=== PATIENT | male | born 1960 | race Caucasian/White ===

== ENCOUNTER → 2017-06-22 | Outpatient (CLI) | payer OTHER ==
[2017-06-22] MEDS: IOHEXOL 300 MG/ML 100ML VIAL. IV ×2 (13:45→14:53)
== END | disposition home or self-care (01) ==
LOC: CT 13:29
DX: M97.8XXA Periprosthetic fracture around other internal prosthetic joint, initial encounter (principal); D16.22 Benign neoplasm of long bones of left lower limb; D16.21 Benign neoplasm of long bones of right lower limb; I74.5 Embolism and thrombosis of iliac artery; N40.0 Benign prostatic hyperplasia without lower urinary tract symptoms
CPT/HCPCS: 75635; Q9967

== ENCOUNTER → 2018-04-19 | Outpatient (CLI) | payer OTHER ==
[2018-03-06 11:00] VITALS: BP 126/77
[~2018-04-19] MED LIST: ALLO100T PO; APIX5TAB PO; ARIP10TA9 IM; ARIP10TA9 PO; ATOR40TA59 PO; BUDE10.2 IH; DILTIAZEM HCL PO; FAMO20TA5 PO; GEMF600T8 PO; HALO10TA PO; HALO5TAB PO; LISI-334 PO; LISI1TAB5 PO; METO50TA6 PO; PRED-220 PO; REGADENOSON 0.4 MG/5 ML DISP.SYRIN. IV ONE; VARE1TAB21 PO
--- NOTE | 2018-04-19 13:47 | RAD ---
MR#: [id number] Date of Study: 04/19/2018 Ordering Physician: GIOVANNI JEFFERSON Referring Physician: MAU [facility] Tech: RT Fannie Isabel) (N) APPROVED REPORT Test Type: Pharmacological Stress Nurse/Tech: Jag Lala Test Indications: Paroxysmal atrial flutter Cardiac History: HTN, Smoker, CVA Medications: See EMR Medical History: See EMR Resting ECG: SR Resting Heart Rate: 91 bpm Resting Blood Pressure: 125/89mmHg Pretest Chest Pain: No chest pain Nurse/Tech Notes Lungs diminished throughout, heart tones regular. Consent: The procedure was explained to the patient in lay terms. Informed consent was witnessed. Joey eout was entered into [employer]. History and Stress Test performed by RT Fannie Curtis) (N) Pharm. Details Pharmacologic stress testing was performed using 0.4mg per 5ml of regadenoson given intravenously ove r 7-10 seconds. Stress Symptoms No chest pain or symptoms. POST EXERCISE Reason for Termination: Infusion complete Max HR: 103 bpm Max Blood Pressure: 135/71mmHg Chest Pain: No. Arrhythmia: No. ST Change: No. INTERPRETATION Stress EKG Conclusion: Baseline EKG showed sinus rhythm. No ischemic changes at peak stress. No arr hythmias. Rest: Stress: Viability: Radiopharm.Tc99m [id number] Sestamibi Dose9.3mCi 32mCi Duration 15min. 15min. Img Date 04/19/2018 04/19/2018 Inj-Img [id number]. 60min. Rest Admin Site:IV - Right AntecubitalAdministrator:RT Kirsten (Mio)(N) Stress Admin Site: IV - Right AntecubitalAdministrator: RT Fannie Curtis)(N) STRESS DATA End Diast. Vol.62.0mlLVEDV index BSA30.0ml End Syst. Vol.20.0mlLVESV index BSA10.0ml Myocardial Mass98.0gEject. Csyahhge30.0% Stress Scores Regional WT1.00Summed WT14.00 Regional WM1.00Summed WM2.00 Study quality was good. Left Ventricular size was Normal at Rest and Stress. Lung uptake was . Left Ventricular ejection fraction is 68%. The rest and stress images show normal perfusion, normal contraction and thickening. LV Perf. Quant 17 Seg. SSS0.00 17 Seg. SRS0.00 17 Seg. SDS0.00 Stress Defect Extent (% LAD)0.00Rest Defect Extent (% LAD)0.00Rev. Defect Extent (% LAD)0.00 Stress Defect Extent (% LCX) 0.00Rest Defect Extent (% LCX)2.50Rev. Defect Extent (% LCX)0.00 Stress Defect Extent (% RCA)0.00Rest Defect Extent (% RCA)0.00Rev. Defect Extent (% RCA)0.00 Stress Defect Extent (% FRANCESCA)0.00Rest Defect Extent (% FRANCESCA)0.90Rev. Defect Extent (% FRANCESCA)0.00 Conclusion 1. Regadenoson cardioisotope stress test did not show any evidence of ischemia or infarct. 2. Normal left ventricular systolic function with ejection fraction calculated at 68%. 3. Low risk for cardiac events. Signed by : Giovanni Jefferson, Electronically Approved : 04/19/2018 13:47:05
== END | disposition home or self-care (01) ==
LOC: NM 10:40
PROVIDERS: ATTEND Internal Medicine Cardiovascular Disease
DX: I48.0 Paroxysmal atrial fibrillation (principal); I10 Essential (primary) hypertension; Z87.891 Personal history of nicotine dependence; Z86.73 Personal history of transient ischemic attack (TIA), and cerebral infarction without residual deficits
CPT/HCPCS: 78452; 93017; 96374; J2785

== ENCOUNTER 2018-04-27 09:06 | Inpatient (IN) | payer OTHER ==
[2018-04-27] VITALS (13 sets, daily range): BP systolic 128–164; BP diastolic 77–103
[~2018-04-27] VITALS: Ht 170.2 cm; Wt 100.9 kg
[~2018-04-27 09:06] MED LIST changes: -ARIP10TA9 IM; -HALO10TA PO; -REGADENOSON 0.4 MG/5 ML DISP.SYRIN. IV ONE
[2018-04-27] MEDS ORDERED: BACITRACIN 50,000 UNIT in IV NORMAL SALINE 250ML 250 ML IRR ONE (09:30)
[2018-04-27 09:37] LABS: CALCIUM 9.1 mg/dL (8.5-10.1); GFR 76.7; HEMATOCRIT 46.6 % (39.0-53.0); HEMOGLOBIN 15.9 g/dL (13.0-17.5); POTASSIUM 3.7 mmol/L (3.5-5.1); RED BLOOD COUNT 4.93 x10^6/uL (4.30-5.70); RED CELL DISTRIBUTION WIDTH 13.8 % (11.5-14.5); WHITE BLOOD COUNT 7.9 x10^3/uL (4.0-11.0)
[2018-04-27] MEDS ORDERED: LIDOCAINE 2%/EPI 1:100,000 20 ML VIAL. ONE ×2 (09:49)
[2018-04-27] MEDS ORDERED: MIDAZOLAM HCL/PF 2 MG/2 ML VIAL. ONE ×2 (09:51→11:04)
[2018-04-27] MEDS ORDERED: fentaNYL PF VIAL 100 MCG/2 ML VIAL ONE ×2 (09:52→11:05)
[2018-04-27 10:04] LABS: PROTHROMBIN TIME PATIENT 12.2 SEC (11.7-14.0)
--- NOTE | 2018-04-27 10:06 | EKG ---
[facility] [address] [place] [address] Test Date: 2018-04-27 Test Time: 10:00:25 Pat Name: TEN BRYAN Department: Room: Gender: M Software Release Manager: CRUZ : [id number] Requested By: COOPER HENDERSON Order Number: [id number] Reading MD: Cooper Henderson Measurements Intervals [place] Rate: 88 P: -17 AL: 154 QRS: 66 QRSD: 94 T: 54 QT: 370 QTc: 451 Interpretive Statements SINUS RHYTHM INCOMPLETE RIGHT BUNDLE BRANCH BLOCK Electronically Signed On 04-27-2018 10:06:43 CHILD CARE TEACHER by Cooper Henderson
[2018-04-27] MEDS ORDERED: APIX5TAB PO ×2 (10:10→10:13)
[2018-04-27] MEDS ORDERED: HALO10TA PO (10:14)
[2018-04-27] MEDS ORDERED: MIDAZOLAM HCL/PF 2 MG/2 ML VIAL. IV ONE (10:15)
[2018-04-27] MEDS ORDERED: fentaNYL PF VIAL 100 MCG/2 ML VIAL IV ONE (10:15)
[2018-04-27] MEDS ORDERED: LIDOCAINE 2%/EPI 1:100,000 20 ML VIAL. IJ ONE (10:15)
[2018-04-27] MEDS ORDERED: ARIP10TA9 IM (10:19)
[2018-04-27] MEDS ORDERED: ALLO100T PO (10:19)
--- NOTE | 2018-04-27 12:29 | CARD ---
MR#: [id number] Date of Study: 04/27/2018 Ordering Physician: GIOVANNI HENDERSON, Referring Physician: GIOVANNI HENDERSON, Tech: APPROVED REPORT PROCEDURES Successful implantation of Biotronik dual chamber permanent pacemaker Moderate sedation: 50 mins INDICATIONS Sick sinus syndrome, tachycardia-bradycardia syndrome with significant pauses PROCEDURE After explaining the risks, benefits, and alternative options, informed consent was obtained from the patient. The patient was brought to the cardiac catheterization lab and the left chest and shoulder were prepp ed and draped in a sterile manner. 30 mL of 2% lidocaine was infiltrated into the skin and subcutaneous tissues for local anesthesia. An incision was made in the left infraclavicular fossa and using blunt dissection and cautery a pocket was created. Venous access was obtained in the left subclavian vein and 8 and 6 Malay sheaths insert ed. A Biotronik bipolar active fixation right ventricular lead model Solia serial #[id number] was advanced under fluoroscopy guidance and the tip was positioned in the right ventricular apex. Following this, a Biotronik bipolar active fixation right atrial lead model solia serial #[id number] was positioned in the right atrial appendage under fluoroscopy guidance. The leads were secured into place and attached to a Biotronik dual-chamber permanent pacemaker generator model Eluna 8 DR-T ProMRI serial #[id number] . This was placed in the pocket that was subsequently closed in 3 layers. Hemostasis was secured. The right ventricular lead showed a sensing amplitude of 13.5 mV, impedance of 677 ohms and a thresho ld of 0.6 V. The right atrial lead showed a sensing amplitude of 3.5 mV, impedance of 618 ohms and a threshold of 0.9 V. Patient tolerated the procedure well. There were no immediate complications. CONCLUSION Successful implantation of Biotronik dual-chamber permanent pacemaker for tachycardia-bradycardia syn drome. Signed by : Giovanni Henderson, Electronically Approved : 04/27/2018 12:29:05
--- NOTE | 2018-04-27 12:30 | NUR ---
The patient, TEN BRYAN, 58 y/o, M admitted by GIOVANNI JEFFERSON MD, was given written information regarding hospital policies, unit procedures and contact persons. Valuables were checked and noted. Patient arrived to room 201 via bed from PACU at 1230. Pacemaker site on L chest CDI. Patient placed on cardiac monitor technician. VSS. Patient on 2L O2 NC. No complaints of pain. Patient A&OX4. Patient has flat affect. Will continue to monitor.
--- NOTE | 2018-04-27 12:36 | PDOC ---
MODERATE SEDATION ASSESSMENT RISKS/ALTERNATIVES Risks/Alternatives Risks and alternatives of this type of sedation and procedure discussed with: RISK/ALTERNATIVES: Patient H & P ON CHART H & P H & P on chart and reviewed for co-morbid conditions and appropriate labs. H&P ON CHART: Yes STATUS PREG STATUS ASSESSED: N/A MEDS/ALLERGIES REVIEWED Meds/Allergies Reviewed Medications and Allergies including time and route of recently administered narcotics and sedatives. MEDS/ALLERGIES REVIEWED: Yes ASA RATING ASA RATING: III AIRWAY ASSESSMENT Airway Assessment Airway patency, oral function limitations, presence of caps, crowns, dentures, partials, and ability to extend neck assessed. AIRWAY ASSESSMENT: Yes MALLAMPATI SCORE MALLAMPATI SCORE: II PRE-SEDATION ASSESSMENT PRE-SEDATION ASSESSMENT: Yes GIOVANNI JEFFERSON MD Apr 27, 2018 12:36
[2018-04-27] MEDS ORDERED: NO ANTICOAGULANT THERAPY. MC PRN (12:45)
--- NOTE | 2018-04-27 12:56 | NUR ---
Patient arrived from [facility] via [facility] on ventilator. Patient received bilateral chest tubes without any complications. No sedation only local lidocaine. Patient left facility via [facility] stretcher on the ventilator. Vitals stable. Report called to [facility]. Addendum: 04/27/18 at 1258 by ENRIQUE SAM RN Charted on wrong patient.
--- NOTE | 2018-04-27 13:29 | RAD ---
Examination: PORTABLE CHEST 1V History: post pacemaker Comparison/Correlation: 03/03/2018 CT chest without contrast Findings: Portable frontal view chest was obtained. Dual-lead left-sided pacemaker is present. Leads appear to be in place and intact. One of the leads overlies the right ventricle while the other overlies the right atrial appendage. Heart size and pulmonary vasculature are normal. No pneumothorax. Calcified granulomas are present. No infiltrate or significant pleural effusion. Deformity of the proximal left humerus presumably represents sequela of previous trauma. Impression: No active disease. Electronically signed by: Kade Waters MD (04/27/2018 1:26 PM) [id number]
[2018-04-27] MEDS ORDERED: ARIPIPRAZOLE IM SCH (17:00)
[2018-04-27] MEDS ORDERED: VARENICLINE 0.5 MG TABLET. PO PRN (17:15)
[2018-04-27] MEDS ORDERED: ALBUTEROL SULFATE 2.5 MG/3 ML NEBU. NEB SCH (18:00)
[2018-04-27] MEDS ORDERED: MORPHINE SULFATE 2 MG/ML VIAL. IV PRN ×2 (18:30)
[2018-04-27] MEDS: BUDESONIDE 0.5 MG/2 ML NEBU. NEB SCH (19:53)
[2018-04-27] MEDS: ALBUTEROL SULFATE 2.5 MG/3 ML NEBU. NEB SCH (19:53)
[2018-04-27] MEDS: FAMOTIDINE 20 MG TABLET. PO SCH (19:58)
[2018-04-27] MEDS: APIXABAN 5 MG TABLET. PO SCH (19:58)
[2018-04-27] MEDS: ALLOPURINOL 100 MG TABLET. PO SCH (19:58)
[2018-04-27] MEDS ORDERED: BUDESONIDE 0.5 MG/2 ML NEBU. NEB SCH (20:00)
[2018-04-27] MEDS ORDERED: NON FORMULARY ITEM (Budesonide/Formoterol Fumarate (Symbicort 160-4.5 Mcg Inhaler) 2 PUFF) IH SCH (21:00)
[2018-04-27] MEDS ORDERED: ATORVASTATIN CALCIUM 40 MG TABLET. PO SCH (21:00)
[2018-04-28 03:50] VITALS: BP_SYST 117; BP_SYST 183; BP_DIAS 103; BP_DIAS 56
[2018-04-28] MEDS ORDERED: LISINOPRIL 20 MG TABLET PO ONE (04:30)
[2018-04-28 05:35] VITALS: BP 161/87
[2018-04-28] MEDS: BUDESONIDE 0.5 MG/2 ML NEBU. NEB SCH (06:12)
[2018-04-28] MEDS: ALBUTEROL SULFATE 2.5 MG/3 ML NEBU. NEB SCH ×2 (06:12→11:34)
[2018-04-28 07:00] VITALS: BP 159/98
--- NOTE | 2018-04-28 07:51 | RAD ---
Chest, 2 views, 04/28/2018: HISTORY: Post pacemaker insertion Comparison is made to yesterday's study. The left-sided transvenous pacemaker is unchanged in position with 2 leads extending into the right heart. The heart size and pulmonary vascularity are normal. Bilateral nodular chest opacities are unchanged as better demonstrated on the 03/03/2018 CT exam. There are rib lesions contributing to this appearance. Multiple osteochondromas are present. No acute infiltrate is seen. There is no evidence of pneumothorax or pleural fluid. IMPRESSION: No acute cardiopulmonary abnormality is detected. Electronically signed by: Donavan Booker MD (04/28/2018 7:48 AM) [facility]
[2018-04-28] MEDS: ALLOPURINOL 100 MG TABLET. PO SCH (08:52)
[2018-04-28] MEDS: FAMOTIDINE 20 MG TABLET. PO SCH (08:52)
[2018-04-28] MEDS: APIXABAN 5 MG TABLET. PO SCH (08:52)
[2018-04-28] MEDS ORDERED: hydroCHLOROthiazide 12.5 MG CAPSULE PO SCH (09:00)
[2018-04-28] MEDS ORDERED: HYDROcodone/APAP 5/325MG 1 TAB TABLET PO ONE (09:00)
[2018-04-28] MEDS ORDERED: LISINOPRIL 20 MG TABLET PO SCH (09:00)
[2018-04-28] MEDS ORDERED: NON FORMULARY ITEM (Lisinopril/Hydrochlorothiazide (Lisinopril-Hctz 20-12.5 Mg Tab) 1 TAB) PO SCH (09:00)
[2018-04-28 10:36] VITALS: BP 145/92
--- NOTE | 2018-04-28 10:58 | PDOC3 ---
[facility] DATA [facility]MINISTRATOR 04/28/18 1058: Discharge Summary Visit Information Date of Admission: Apr 27, 2018 Date of Discharge: Apr 28, 2018 Admitting Diagnosis: PAFIB, Tachy-Braden syndrome Final Diagnosis PAFIB, Tachy-Braden syndrome, S/P PPM Brief Hospital Course Allergies Allergies Coded Allergies Type Severity Reaction Last Updated Verified No Known Drug Allergies 04/27/17 No Vital Signs Vital Signs Date Time Temp Pulse Resp B/P (MAP) Pulse Ox O2 Delivery O2 Flow Rate FiO2 04/28/18 10:36 97.5 92 18 145/92 (109) 94 Room Air 97.5 04/27/18 12:40 2.0 Lab Results Laboratory Tests Test 04/27/18 09:25 White Blood Count 7.9 x10^3/uL (4.0-11.0) Red Blood Count 4.93 x10^6/uL (4.30-5.70) Hemoglobin 15.9 g/dL (13.0-17.5) Hematocrit 46.6 % (39.0-53.0) Mean Corpuscular Volume 95 fL (79-100) Mean Corpuscular Hemoglobin 32 pg (25-35) Mean Corpuscular Hemoglobin Concent 34 g/dL (31-37) Red Cell Distribution Width 13.8 % (11.5-14.5) Platelet Count 235 x10^3/uL (140-400) Prothrombin Time 12.2 SEC (11.7-14.0) Prothromb Time International Ratio 0.9 (0.8-1.1) Sodium Level 147 mmol/L (136-145) Potassium Level 3.7 mmol/L (3.5-5.1) Chloride Level 103 mmol/L (98-107) Carbon Dioxide Level 33 mmol/L (21-32) Anion Gap 11 (6-14) Blood Urea Nitrogen 21 mg/dL (8-26) Creatinine 1.0 mg/dL (0.7-1.3) Estimated GFR (Cockcroft-Gault) 76.7 Glucose Level 106 mg/dL (70-99) Calcium Level 9.1 mg/dL (8.5-10.1) Brief Hospital Course Mr. Sorensen is a 58 yo male admitted for planned. PPM. Pt is significant for PAFIB and post event monitor noted with significant pauses with related AFIB prompting need for PPM. Successful implantation of Biotronik dual-chamber permanent pacemaker without complications. VSS. overnight no AFIB or RVR episodes and maintaining SR. Repeat interrogation revealed normal function. AOx3 , ambulatory without difficulty. Left chest incision intact with steristrips and well approximated, no redness/swelling with minute serosanguiinous drain. Neurovascular status to LUE intact with sling in place. Home with home med regimen including eliquis for stroke prevention and cardizem. Will note AFIB burden as an outpt and will consider antiarrhythmic therapy. Recent MPI noted normalcy on 04/19/2018. Post PPM instruction provided. smoking cessation encouraged. Discharge Information Condition at Discharge: Stable Follow Up: Weeks (2) Disposition/Orders: D/C to Home Scheduled Allopurinol (Allopurinol) 100 Mg Tablet, 1 TAB PO BID for Gout, #30 Ref 5 ( Reported) Entered as Reported by: ENRIQUE SAM on 04/27/18 1019 Last Taken: Unknown Dose on 04/26/18 Last Action: Continued on 04/27/181700 by RAJ WILKINSON Apixaban (Eliquis) 5 Mg Tablet, 1 TAB PO BID for Afib/Aflutter, (Reported) Entered as Reported by: ENRIQUE SAM on 04/27/18 1013 Last Taken: Unknown Dose on 04/24/18 Last Action: Continued on 04/27/181700 by RAJ WILKINSON Aripiprazole (Abilify) 10 Mg Tablet, 9.75 MG IM UD for Paranoid Schizo, ( Reported) Entered as Reported by: ENRIQUE SAM on 04/27/18 1019 Last Action: Converted on 04/27/181700 by RAJ JAJA Atorvastatin Calcium (Atorvastatin Calcium) 40 Mg Tablet, 40 MG PO QHS for cholesterol for 30 Days, #30 Ref 11 Prescribed by: ASTRID GRANADOS MD on 03/06/18 1244 Last Taken: Unknown Dose on 04/26/18 Last Action: Continued on 04/27/181700 by RAJ WILKINSON Budesonide/Formoterol Fumarate (Symbicort 160-4.5 Mcg Inhaler) 10.2 Gm Hfa.aer.ad, 2 PUFF IH BID for SOA, (Reported) Entered as Reported by: ROSEANNA SMITH on 03/03/18 140 Last Taken: Unknown Dose on 04/26/18 Last Action: Converted on 04/27/181700 by RAJ WILKINSON Famotidine (Famotidine) 20 Mg Tablet, 20 MG PO BID, (Reported) Entered as Reported by: JOHN CROUCH on 04/27/171731 Last Taken: Unknown Dose on 04/26/18 Last Action: Continued on 04/27/181700 by RAJ WILKINSON Lisinopril/Hydrochlorothiazide (Lisinopril-Hctz 20-12.5 Mg Tab) 1 Each Tablet, 1 TAB PO DAILY, #30 Ref 5 (Reported) Entered as Reported by: JOHN CROUCH on 04/27/171731 Last Taken: Unknown Dose on 04/26/18 Last Action: Converted on 04/27/181700 by RAJ WILKINSON [Diltiazem Hcl] 300 MG CAP.ER.24H, 300 MG PO DAILY for heart for 30 Days, #30 Ref 11 Prescribed by: ASTRID GRANADOS MD on 03/06/18 1244 Last Taken: Unknown Dose on 04/26/18 Last Action: Converted on 04/27/181700 by RAJ WILKINSON Scheduled PRN Varenicline Tartrate (Chantix) 1 Mg Tablet, 1 MG PO BID PRN for WITHDRAWAL IRRITABILITY, (Reported) Entered as Reported by: ROSEANNA SMITH on 03/03/18 1403 Last Action: Converted on 04/27/181700 by RAJ WILKINSON Discontinued Medications Haloperidol (Haloperidol) 5 Mg Tablet, 5 MG PO TID for agitation/anxiety, ( Reported) Entered as Reported by: ROSEANNA SMITH on 03/03/18 1406 Last Action: Discontinued on 04/27/18 1014 by ENRIQUE SAM Patient Instructions Patient Instructions Must know & what to expect after device implant: 1. Your surgical dressing should be removed prior to discharge from the hospital, but allow the steri- strips to fall off naturally. 2. Activity restrictions: DO NOT raise arm above shoulder level, lift anything heavier than a gallon of milk, and no push or pull motions such as vacuuming/lawn mowing, no swinging motions (golf), etc for 4 weeks. 3. It is OK to use a cell phone or other electronic devices just be sure you do not store it in a breast pocket on the side where the device was placed. 4. Device will be interrogated prior to your discharge from the hospital and then every 3 months for defibrillators and every 6 months for pacemakers. You may be asked to have your device checked remotely from home as well, but this will depend on your particular physicians preference. 5. You may remove the arm immobilizer the day after device placement. Wear the arm immobilizer/splint at night (during sleep times) for 2 week to prevent unintended arm movement that can cause lead dislodgement. 6. Do not drive for one week as the task of driving may lead to unintended arm motion that may cause lead dislodgement. The seatbelt will also rub against the incision site & cause irritation. 7. It is our recommendation that you utilize Tylenol at home for pain control. You need to call our office if you are having uncontrollable pain at the incision site. 8. Keep your incision clean and dry. It is OK to shower. DO NOT submerge in bath, pool, or hot tub, until cleared by your doctor, as this could lead to increase risk of infection.. It is OK to use regular soap just do not scrub the incision site. Water spray from shower should not directly hit the incision. Be sure to blot dry not rub. 9. Inspect your incision daily. If you notice any increased redness, swelling , or drainage, or if you start running a fever, call the office immediately. The number is [phone]. 10. For women, if you need to protect against irritation from the bra straps, you can place a piece of gauze over the incision site for cushion. Please be sure to tape it loosely to allow air to the site & remove the gauze when you remove the bra. 11. Be sure to carry your device identification information card in your wallet/purse at all times. 12. It is OK to go through security at the airport with your device, but be sure to let the TSA know prior to proceeding as the security settings change depending on varying factors. Please do whatever is requested by security at that time. 13. Some of the newer devices may be MRI compatible but, currently, the use of these devices is not widespread, so you likely will not be able to have an MRI. Please clarify this with your physician. If at any time, you feel lightheaded or dizzy/faint, stop what you are doing & lie down immediately. If you are driving, get to the side of the road quickly, turn your car off & call 911 on your cell phone. DO NOT continue to drive as this may cause an accident that seriously injures yourself &/or others. Call the office at [phone] for any questions or concerns. GIOVANNI JEFFERSON MD 04/28/18 1705: Discharge Summary Brief Hospital Course Brief Hospital Course Patient seen and examined. Agree with RUBBER PRINTING MACHINE OPERATOR's assessment and plan. s/p permanent pacemaker implantation for sick sinus syndrome yesterday Chest x-ray without any pneumothorax Device interrogation showed normal function We will consider antiarrhythmic therapy based on future device checks and atrial fibrillation burden Okay for discharge today and follow-up for wound check in 2 weeks [facility] APRN Apr 28, 2018 10:58 GIOVANNI JEFFERSON MD Apr 28, 2018 17:05
--- NOTE | 2018-04-28 12:10 | NUR ---
SS following for discharge planning. SS reviewed pt chart. Pt is from home and is currently on room air. No discharge needs noted at this time. SS will continue to follow for pending discharge needs.
--- NOTE | 2018-04-28 13:51 | NUR ---
Patient discharged to Home with Self care. Discharge instructions, follow ups reviewed with patient and director building. Both verbalized understanding.
== END 2018-04-28 13:50 | disposition home or self-care (01) | DRG 243 ==
LOC: CCL 09:06 → 2 NORTH 10:00
PROVIDERS: ADMIT Internal Medicine Cardiovascular Disease; ATTEND Internal Medicine Cardiovascular Disease
PROC: 0JH606Z Insertion of Pacemaker, Dual Chamber into Chest Subcutaneous Tissue and Fascia, Open Approach (ICD-10-PCS; principal; 2018-04-27)
PROC: 02HK3JZ Insertion of Pacemaker Lead into Right Ventricle, Percutaneous Approach (ICD-10-PCS; 2018-04-27)
PROC: 02H63JZ Insertion of Pacemaker Lead into Right Atrium, Percutaneous Approach (ICD-10-PCS; 2018-04-27)
PROC: 4B02XSZ Measurement of Cardiac Pacemaker, External Approach (ICD-10-PCS; 2018-04-28)
DX: I49.5 Sick sinus syndrome (principal); E87.0 Hyperosmolality and hypernatremia; E87.3 Alkalosis; F17.210 Nicotine dependence, cigarettes, uncomplicated; I48.0 Paroxysmal atrial fibrillation; Z95.0 Presence of cardiac pacemaker; Z79.899 Other long term (current) drug therapy; Z71.6 Tobacco abuse counseling
CPT/HCPCS: 33208; 36415; 71045; 71046; 80048; 85027; 85610; 93005; 94640; 99152; 99153; 99406; C1785; C1898; J0696; J2250; J3010; J3490; J7050; J7613; J7626; J7030